=== PATIENT | female | born 1990 | race Caucasian/White ===

== ENCOUNTER 2018-06-12 11:48 | Emergency (ER) | payer SELFPAY ==
[2018-06-12 11:55] VITALS: BP 125/85; PULSE 89; TEMP 97.8; BMI 28.2
[2018-06-12] MEDS ORDERED: ACETAMINOPHEN 500 MG TABLET (FP) PO ONE (12:52)
[2018-06-12] MEDS ORDERED: BUPIVACAINE HCL/PF 0.5% (5MG/ML) 10 ML VIAL IJ ONE (12:52)
[2018-06-12] MEDS ORDERED: ACETAMINOPHEN 500 MG TABLET (FP) ONE (12:55)
--- NOTE | 2018-06-12 12:58 | PDOC ---
History of Present Illness - General Chief Complaint: Toothache Stated Complaint: TOOTH ACHES Time Seen by Provider: 06/12/18 12:19 History Source: Patient Exam Limitations: No Limitations - History of Present Illness Initial Comments: 06/12/18 12:53 HISTORY OF PRESENT ILLNESS: 28-year-old woman is denies medical history who is on vacation from [facility] who presents emergency Department with toothache to right upper molar starting last night. Patient is been taking ibuprofen and Orajel with minimal relief of pain. Patient reports she is scheduled to have extensive dental work performed when she returns to the [facility] after vacation. No recent travel or sick contacts. PAST MEDICAL HISTORY: Denies past medical history SURGICAL HISTORY: Denies ALLERGIES: Codeine REVIEW OF SYSTEMS General/Constitutional: Denies fever or chills. Denies weakness, weight change. HEENT: see HPI Cardiovascular: Denies chest pain or shortness of breath. Respiratory: Denies cough, wheezing, or hemoptysis. Gastrointestinal: Denies nausea, vomiting, diarrhea or constipation. Denies rectal bleeding. Genitourinary: Denies dysuria, frequency, or change in urination. Musculoskeletal: Denies joint or muscle swelling or pain. Denies neck or back pain. Skin and breasts: Denies rash or easy bruising. Neurologic: Denies headache, vertigo, loss of consciousness, or loss of sensation. Psychiatric: Denies depression or anxiety. Endocrine: Denies increased thirst. Denies abnormal weight change. Hematologic/Lymphatic: Denies anemia, easy bleeding, or history of blood clots. Allergic/Immunologic: Denies hives or skin allergy. Denies latex allergy. PHYSICAL EXAM General Appearance: Well-appearing, appropriately dressed. No apparent distress , no intoxication. HEENT: EOMI, PERRLA, normal ENT inspection, normal voice, TMs normal, pharynx normal. No conjunctival pallor. No photophobia, scleral icterus. Multiple dental caries present notably to tooth #2, 15, 13, 19 and 29. No palpable abscess present to any of these teeth. No discharge or drainage present. No halitosis present. Neck: Supple. Trachea midline. No tenderness, rigidity, carotid bruit, stridor , lymphadenopathy, or thyromegaly. Respiratory/Chest: Lungs CTAB. No shortness of breath, chest tenderness, respiratory distress, accessory muscle use. No crackles, rales, rhonchi, stridor , wheezing, dullness Cardiovascular: RRR. S1, S2. No JVD, murmur, bradycardia, tachycardia. Lymphatic: No adenopathy, tenderness. Past History - Past Medical History Allergies/Adverse Reactions: Allergies Allergy/AdvReac Type Severity Reaction Status Date / Time codeine Allergy Verified 06/12/18 11:55 Home Medications: Ambulatory Orders Penicillin V Potassium [Pen Vee K -] 500 mg PO QID #28 tablet 06/12/18 COPD: No - Suicide/Smoking/Psychosocial Hx Smoking History: Never smoked *Physical Exam - Vital Signs Last Vital Signs Temp Pulse Resp BP Pulse Ox 97.8 F 89 18 125/85 98 06/12/18 11:51 06/12/18 11:51 06/12/18 11:51 06/12/18 11:51 06/12/18 11:51 Moderate Sedation - Procedure Monitoring Vital Signs: Procedure Monitoring Vital Signs Temperature 97.8 F 06/12/18 11:51 Pulse Rate 89 06/12/18 11:51 Respiratory Rate 18 06/12/18 11:51 Blood Pressure 125/85 06/12/18 11:51 O2 Sat by Pulse Oximetry (%) 98 06/12/18 11:51 Medical Decision Making - Medical Decision Making 06/12/18 12:53 A/P: 28-year-old woman with multiple dental caries and toothache at tooth #2 Tylenol 1 g orally now Marcaine injection Discharge home with prescription for Pen-Vee K *DC/Admit/Observation/Transfer Diagnosis at time of Disposition: Toothache, Dental caries - Discharge Dispostion Disposition: HOME Condition at time of disposition: Stable Decision to Admit order: No - Prescriptions Prescriptions: Penicillin V Potassium [Pen Vee K -] 500 mg PO QID #28 tablet - Referrals - Patient Instructions Printed Discharge Instructions: DI for Tooth Decay, DI for Dental Pain Additional Instructions: Rest, drink lots of fluids: Teas, water, soups Saltwater gargles/ keep mouth clean and rinse after each meal May use wet teabag for pain relief to area Avoid hard chewing foods, stick to ice cream, Jell-O, yogurt etc. Tylenol or Motrin for fever and pain Complete all medication as prescribed Call [facility] at [phone] Followup with private physician in one to 2 days as needed Return to emergency department for worsened symptoms, fevers, swelling to face or worsened pain - Post Discharge Activity
[2018-06-12] MEDS ORDERED: BUPIVACAINE HCL/PF 0.5% (5MG/ML) 10 ML VIAL ONE (13:02)
== END 2018-06-12 13:14 | disposition home or self-care (01) ==
LOC: JERFT 11:48
PROC: 3E0D3BZ Introduction of Anesthetic Agent into Mouth and Pharynx, Percutaneous Approach (ICD-10-PCS; principal; 2018-06-12)
DX: K02.9 Dental caries, unspecified (principal)
CPT/HCPCS: 99281-25